=== PATIENT | female | born 1995 | race Caucasian/White ===

== ENCOUNTER 2016-10-03 22:06 | Emergency (ER) | payer OTHER ==
[2016-10-03 22:32] VITALS: BP 144/77
== END 2016-10-03 23:23 | disposition left against medical advice (07) ==
LOC: ED 22:06
DX: J02.9 Acute pharyngitis, unspecified (principal); Z53.21 Procedure and treatment not carried out due to patient leaving prior to being seen by health care provider

== ENCOUNTER 2016-10-04 14:21 | Emergency (ER) | payer OTHER ==
[2016-10-04 14:38] VITALS: BP 123/92
--- NOTE | 2016-10-04 14:49 | UC ---
Throat Pain/Nasal Rob HPI - HPI Summary HPI Summary: worsening sore throat for 1 week, no fevers, but is very painful to swallow - History of Current Complaint Chief Complaint: EDThroatPain Stated Complaint: SORE THROAT/[place] Time Seen by Provider: 10/04/16 14:40 Hx Obtained From: Patient Hx Last Menstrual Period: 09/30/16 ?: No Onset/Duration: Gradual Onset, Lasting Days - 7, Still Present, Worse Since - getting worse everyday Severity: Moderate Pain Intensity: 6 Pain Scale Used: 0-10 Numeric Cough: None Associated Signs & Symptoms: Positive: Negative - Allergies/Home Medications Allergies/Adverse Reactions: Allergies Allergy/AdvReac Type Severity Reaction Status Date / Time No Known Allergies Allergy Verified 10/04/16 14:38 PMH/Surg Hx/FS Hx/Imm Hx Previously Healthy: No Endocrine History Of: Denies: Diabetes, Thyroid Disease Cardiovascular History Of: Denies: Cardiac Disorders, Hypertension Respiratory History Of: Reports: Asthma Denies: COPD GI/ History Of: Denies: Ulcer - Surgical History Surgical History: None Surgery Procedure, Year, and Place: denies - Family History Known Family History: Positive: Hypertension - Social History Occupation: Unemployed Lives: With Family Alcohol Use: None Substance Use Type: None Smoking Status (MU): Heavy Every Day Tobacco Smoker Type: Cigarettes Amount Used/How Often: pack a date Length of Time of Smoking/Using Tobacco: 11 years Have You Smoked in the Last Year: Yes Household Exposure Type: Cigarettes Cessation Counseling: Counseled 3+Min - 10 Min - Immunization History Most Recent Influenza Vaccination: unknown Most Recent Tetanus Shot: 06/21/15 Most Recent Pneumonia Vaccination: none Review of Systems Constitutional: Chills Skin: Negative Eyes: Negative ENT: Sore Throat Respiratory: Negative Cardiovascular: Negative Gastrointestinal: Negative Genitourinary: Negative Motor: Negative Neurovascular: Negative Musculoskeletal: Negative Neurological: Negative Psychological: Negative All Other Systems Reviewed And Are Negative: Yes Physical Exam Triage Information Reviewed: Yes Appearance: Well-Appearing, No Pain Distress, Well-Nourished Vital Signs: Initial Vital Signs Temp 98.4 F 10/04/16 14:31 Pulse 95 10/04/16 14:31 Resp 16 10/04/16 14:31 BP 123/92 10/04/16 14:31 Pulse Ox 100 10/04/16 14:31 Vital Signs Reviewed: Yes Eye Exam: Normal Eyes: Positive: Conjunctiva Clear ENT Exam: Normal ENT: Positive: Normal ENT inspection, Hearing grossly normal, Pharynx normal, TMs normal, Tonsillar swelling, Tonsillar exudate. Negative: Nasal congestion, Nasal drainage, Trismus, Muffled/hoarse voice Dental Exam: Normal Neck exam: Normal Neck: Positive: Supple, Nontender, No Lymphadenopathy Respiratory Exam: Normal Respiratory: Positive: Chest non-tender, Lungs clear, Normal breath sounds, No respiratory distress, No accessory muscle use Cardiovascular Exam: Normal Cardiovascular: Positive: RRR, No Murmur, Pulses Normal, Brisk Capillary Refill Musculoskeletal Exam: Normal Musculoskeletal: Positive: Strength Intact, ROM Intact, No Edema Neurological Exam: Normal Neurological: Positive: Alert, Muscle Tone Normal Psychological Exam: Normal Psychological: Positive: Normal Response To Family, Age Appropriate Behavior Skin Exam: Normal Diagnostics - Laboratory Diagnostic Studies Completed/Ordered: RST (-) Throat Pain/Nasal Course/Dx - Course Assessment/Plan: increase fluids, prednisone, tylenol, ibuprofen follow with pcp recheck this week if symptoms worsen or fail to improve - Differential Dx/Diagnosis Differential Diagnosis/HQI/PQRI: Influenza, Laryngitis, Pharyngitis, Sinusitis, URI Provider Diagnoses: URI, Viral Syndrome Discharge - Discharge Plan Condition: Stable Disposition: HOME Prescriptions: predniSONE TAB* [Deltasone TAB*] 20 mg PO DAILY #8 tab Patient Education Materials: Pharyngitis (ED), Viral Syndrome (ED) Referrals: Miky Mendoza III C.O.D. BILLER [Primary Care Provider] - 5 Days
== END 2016-10-04 15:53 | disposition home or self-care (01) ==
LOC: UCEAST 14:21
DX: J06.9 Acute upper respiratory infection, unspecified (principal); B34.9 Viral infection, unspecified; J45.909 Unspecified asthma, uncomplicated; F17.210 Nicotine dependence, cigarettes, uncomplicated
CPT/HCPCS: 87651; 99201; G0463

== ENCOUNTER 2017-12-06 14:17 | Emergency (ER) | payer SELFPAY ==
[2017-12-06 14:42] VITALS: BP 119/90
--- NOTE | 2017-12-06 14:49 | UC ---
Bite Injury/Animal HPI - HPI Summary HPI Summary: 22 y/o female presents to the urgent care c/o LF index finger swollen and red s/ p squirrel bite yesterday at 1400pm. Pt reports she was driving w/ her and he decided to stop his car and help a squirrel who was just inured in the side of the road. He brought squirrel inside the car. He was petting the squirrel who seemed harmless. Pt decided to do the same and squirrel was afraid and bite her left index finger. She irrigated her finger w/ plenty of water as soon as she got home. This morning she woke up and her finger is swollen, red and painful. Seh called the health department and was advised to come to the urgent care to get treatment. seh can't recalled when was the last Tetanus vaccine. Pain is 2/10 at touch. She can move her left finger w/o any difficulty. LMP: 11/27/17/ and declines test. Pt denies fever, BRIGGS, SOB , chest pain, abdominal pain. N/V/D. - History of Current Complaint Chief Complaint: UCBiteInjury Stated Complaint: SQUIRREL BITE Time Seen by Provider: 12/06/17 14:49 Hx Obtained From: Patient Hx Last Menstrual Period: 11/27/17 ?: No - Pt declines test Severity Currently: Moderate Severity Initially: Moderate Pain Intensity: 2 Pain Scale Used: 0-10 Numeric Onset/Duration: Sudden Onset - yesterday at 1500pm, Lasting Days - 1 day Type of Bite: Wild Animal - squirrel Has Animal Been Immunized?: No Character: Puncture - at left DIPJ Aggravating Factor(s): Other - movement of left DIPJ Alleviating Factor(s): Rest Associated Signs And Symptoms: Positive: Erythema, Swelling, Limited ROM. Negative: Fever, Drainage, Lymphadenopathy Hx of Bite: Unprovoked Animal Available for Observation: No Animal Control Notified: Yes Body - Head: 1 - 0.3cm puncture wound at left DIPJ 2 - 0.4cm puncture wound at the left 2nd DIPJ - Risk Factors Infection/Sepsis Risk Factors: Negative - Allergies/Home Medications Allergies/Adverse Reactions: Allergies Allergy/AdvReac Type Severity Reaction Status Date / Time No Known Allergies Allergy Verified 12/06/17 14:42 PMH/Surg Hx/FS Hx/Imm Hx Previously Healthy: Yes Respiratory History: Asthma - Surgical History Surgical History: None Surgery Procedure, Year, and Place: denies - Family History Known Family History: Positive: Hypertension, Diabetes - Social History Occupation: Employed Full-time Lives: With Family Alcohol Use: None Substance Use Type: None Smoking Status (MU): Heavy Every Day Tobacco Smoker Type: Cigarettes Amount Used/How Often: pack a date Length of Time of Smoking/Using Tobacco: 11 years Have You Smoked in the Last Year: Yes Household Exposure Type: Cigarettes - Immunization History Most Recent Influenza Vaccination: unknown Most Recent Tetanus Shot: 06/21/15 Most Recent Pneumonia Vaccination: none Hx Tetanus, Diphtheria Vaccination: No - unkown Review of Systems Constitutional: Negative Skin: Other - puncture wound at the 2nd left DIPJ s/p squirrel bite, swelling and redness around it Eyes: Negative ENT: Negative Respiratory: Negative Cardiovascular: Negative Gastrointestinal: Negative Genitourinary: Negative Motor: Negative Neurovascular: Negative Musculoskeletal: Negative Neurological: Negative Psychological: Negative Is Patient Immunocompromised?: No All Other Systems Reviewed And Are Negative: Yes Physical Exam - Summary Physical Exam Summary: Vital Signs Reviewed: Yes General: well developed, well nourished female sitting in the examining table w/ o any apparent distress. Eyes: Positive: Conjunctiva Clear - PERRLA, EOMI ENT: Positive: Normal ENT inspection, Hearing grossly normal, Pharynx normal, TMs normal Neck: Positive: Supple, Nontender, No Lymphadenopathy Respiratory: Positive: Chest nontender, Lungs clear, Normal breath sounds Cardiovascular: Positive: RRR, No Murmur, Pulses Normal Abdomen Description: Positive: Nontender, No Organomegaly, Soft. Negative: CVA Tenderness (R), CVA Tenderness (L) Bowel Sounds: Positive: Present Musculoskeletal: Positive: Strength Intact, ROM Intact, No Edema Neurological Exam: Normal Psychological Exam: Normal Skin: Positive: rashes - left DIPJ w/ a puncture wound in both dorsal and ventral side w/ small erythematous patch w/ indistinct borders,surrounding wound warm to touch, mild swelling and tender to palpation. No streaking observed, no lymphadenopathy palpated. no drainage. FROM of left 2nd phalanx. Sensation WNl, capillary refill brisk, pulses WNL Triage Information Reviewed: Yes Vital Signs: Initial Vital Signs Temp 98.8 F 12/06/17 14:38 Pulse 82 12/06/17 14:38 Resp 18 12/06/17 14:38 BP 119/90 12/06/17 14:38 Pulse Ox 99 12/06/17 14:38 Bite Injury Course/Dx - Course Course Of Treatment: 22 y/o female presents to the urgent care c/o LF index finger swollen and red s/p squirrel bite yesterday at 1400pm. Pt reports she was driving w/ her and he decided to stop his car and help a squirrel who was just inured in the side of the road. He brought squirrel inside the car. He was petting the squirrel who seemed harmless. Pt decided to do the same and squirrel was afraid and bite her left index finger. She irrigated her finger w/ plenty of water as soon as she got home. This morning she woke up and her finger is swollen, red and painful. Se called the health department and was advised to come to the urgent care to get treatment. seh can't recalled when was the last Tetanus vaccine. Pain is 2/10 at touch. She can move her left finger w/o any difficulty. LMP: 11/27/17/ and declines test. Pt denies fever, BRIGGS, SOB, chest pain, abdominal pain. N/V/D.Hx obtained. Pt w/ left DIPJ w/ a puncture wound in both dorsal and ventral side w/ small erythematous patch w/ indistinct borders,surrounding wound warm to touch, mild swelling and tender to palpation. No streaking observed, no lymphadenopathy palpated. no drainage on examination. As per U[employer] Pt's risk of rabies exposure is very low since bite was from a squirrels. I spoke to Mr Radha Loco at the health Department in regards to rabied prophilaxis and he states he already spoke to Pt in the morning and advised Pt to come to urgent care for management of infected wound and that risk of rabies was low. He spoke to hsi supervisor [employer] and they decline authorization for prophilactic treatment. I spoke to Dr Osei in regards to Pt's symptoms and she agreed w/ plan of care. Pt given Tetanus vaccines by nurse. Left index finger X-ray ordered to r/o fracture or FB. Impression: negative for fracture or FB. wound irrigated well, cleaned w/ iodine swabs, bacitracin oint applied and wound covered w/ Bacitracin oint. Pt Rx Augmentin PO. First dose given at the clinic. Also Rx Bacitracin oint and strongly advised if not improvement of symptoms to return to the clinic or f/u w/ her PCP for further maanagement.Pt's BP is elevated today advised to decrease salt in diet, monitor BP and f/u with PCP for further management. Pt understood and aggreed w/ plan of care. - Differential Dx/Diagnosis Differential Diagnosis/HQI/PQRI: Cellulitis, Fracture, Laceration, Puncture, Rabies Exposure, Superficial Infection, Deep Space Infection, Tenosynovitis Provider Diagnoses: 1-left 2nd phalanx puncture wound s/p squirrel bite. 2- Left 2nd phalanx cellulitis s/p squirrel bite. 3- Elevated BP w/o Hx of HTN Discharge - Sign-Out/Discharge Documenting (check all that apply): Discharge/Admit/Transfer - D/C home - Discharge Plan Condition: Stable Disposition: HOME Prescriptions: Amoxicillin/Clavulanate TAB* [Augmentin TAB 875*] 875 mg PO BID #19 tab Bacitracin OINTMENT* 1 applic TOPICAL BID #1 tube Patient Education Materials: Animal Bite (ED), Cellulitis (ED), Low-Sodium Diet (ED) Referrals: Martina Devi CLINICAL RESEARCH NURSE COORDINATOR [Primary Care Provider] - 2 Days Additional Instructions: 1-Please take full course of Antibiotic. First dose given at the clinic today 2-Keep wound dry and clean. Apply Bacitracin oint as directed over the wound 3- If redness and swelling doubles after 48 hrs of taking antibiotic and fever develops please go to the ER immediately. 4-Avoid flexing your left index finger to decrease swelling 5-Please F/u with your PCP or return to the urgent care in 2-3 days if not improvement of symptoms for further evaluation and treatment. 6-Your BP is elevated today. please decrease salt in your diet, monitor BP and if it continues to be elevated please f/u with your PCP for further management - Billing Disposition and Condition Condition: STABLE Disposition: Home
[2017-12-06] MEDS ORDERED: Tetan/Diph/Pertus SYR(Tdap)* 0.5 ML SYR(BOOSTRIX) use SYR IM ONE (15:17)
--- NOTE | 2017-12-06 15:45 | RAD ---
INDICATION: Left second digit injury COMPARISON: None TECHNIQUE: AP, lateral, and oblique views were obtained. FINDINGS: There is no fracture or foreign body. There is soft tissue swelling about the proximal digit. IMPRESSION: NO FRACTURE OR FOREIGN BODY.
[2017-12-06] MEDS ORDERED: Amoxicillin/Clavulanate TAB* 875 MG PO ONE (15:52)
== END 2017-12-06 16:25 | disposition home or self-care (01) ==
LOC: UCEAST 14:17
DX: S61.231A Puncture wound without foreign body of left index finger without damage to nail, initial encounter (principal); L03.012 Cellulitis of left finger; W53.21XA Bitten by squirrel, initial encounter; Y93.9 Activity, unspecified; Y92.9 Unspecified place or not applicable; Z23 Encounter for immunization; R03.0 Elevated blood-pressure reading, without diagnosis of hypertension; J45.909 Unspecified asthma, uncomplicated; Z82.49 Family history of ischemic heart disease and other diseases of the circulatory system; Z83.3 Family history of diabetes mellitus; F17.210 Nicotine dependence, cigarettes, uncomplicated
CPT/HCPCS: 73140; 90471; 90715; 99212; A9270-GY; G0463

== ENCOUNTER 2018-11-09 20:04 | Emergency (ER) | payer MEDICAID ==
[2018-11-09 20:19] VITALS: BP 140/87
--- NOTE | 2018-11-09 20:37 | UC ---
Shoulder Pain HPI - HPI Summary HPI Summary: 23 y/o female presents to the urgent care c/o right shoulder pain from picking up daughter two weeks ago. Also rash on second finger of right hand-just noticed it today - History of Current Complaint Chief Complaint: UCUpperExtremity Stated Complaint: SHOULDER STRAIN Time Seen by Provider: 11/09/18 20:36 Hx Obtained From: Patient Hx Last Menstrual Period: 09/19/2018 ?: Yes Onset/Duration: Sudden Onset, Lasting Weeks - 2 weeks Pain Intensity: 2 - Allergies/Home Medications Allergies/Adverse Reactions: Allergies Allergy/AdvReac Type Severity Reaction Status Date / Time amoxicillin Allergy Unknown Verified 11/09/18 20:20 Reaction Details Penicillins Allergy Unknown Verified 11/09/18 20:20 Reaction Details Home Medications: Home Medications Pnv No.103/Folic/Om3s/Fish Oil [ Gummies] 1 tab PO DAILY 11/09/18 [ History Confirmed 11/09/18] PMH/Surg Hx/FS Hx/Imm Hx - Surgical History Surgical History: None Surgery Procedure, Year, and Place: denies - Family History Known Family History: Positive: Hypertension, Diabetes - Social History Alcohol Use: None Substance Use Type: None Smoking Status (MU): Heavy Every Day Tobacco Smoker Type: Cigarettes Amount Used/How Often: pack a date Length of Time of Smoking/Using Tobacco: 11 years Have You Smoked in the Last Year: Yes Household Exposure Type: Cigarettes - Immunization History Most Recent Influenza Vaccination: unknown Most Recent Tetanus Shot: 06/21/15 Most Recent Pneumonia Vaccination: none Hx Tetanus, Diphtheria Vaccination: No - unkown Physical Exam - Summary Physical Exam Summary: Vital Signs Reviewed: Yes GENERAL: Well-Appearing, No Pain Distress, Well-Nourished female w/o any apparent pain distress Eyes: Positive: Conjunctiva Clear - PERRL,EOMI ENT: Positive: Normal ENT inspection, Hearing grossly normal, Pharyngeal erythema - mild, Nasal drainage - clear, Uvula midline Neck: Positive: Supple, Nontender, No Lymphadenopathy Respiratory: Positive: Chest non-tender, Lungs clear, Normal breath sounds, No respiratory distress Cardiovascular: Positive: RRR, No Murmur, Pulses Normal, Brisk Capillary Refill Abdomen Description: Positive: Nontender, No Organomegaly, Soft. Negative: CVA Tenderness (R), CVA Tenderness (L) Bowel Sounds: Positive: Present Musculoskeletal: Rt shoulder: The R shoulder is with/without obvious asymmetry or deformity when compared to the L shoulder. posterior shoulder w/ ecchymosis and bruising, no crepitus. No bony deformity or prominence of humeral head. No erythema, warmth. No Point Tenderness to palpation over the clavicle, or scapula. positive tenderness over Acromioclavicular joint and humeral head with mild swelling, NT to palpation of the bicipital groove . NT to palpation of the muscles of the sternocleidomastoid, pectoralis, biceps/triceps , deltoid, trapezius, . Limited ROM due to pain especially in adduction and abduction.on both passive and active, internal/external rotation, flexion/ extension. "empty can and drop arm test unable to perform due to pain. No axillary tenderness or lymphadenopathy. Normal sensation over the deltoid and fingers. Distal motor and neurovascular status is intact. Neurological Exam: Normal Psychological Exam: Normal Skin Exam: Normal Triage Information Reviewed: Yes Vital Signs: Initial Vital Signs Temp 98.4 F 11/09/18 20:12 Pulse 96 11/09/18 20:12 Resp 16 11/09/18 20:12 BP 140/87 11/09/18 20:12 Pulse Ox 100 11/09/18 20:12 Shoulder Course/Dx - Course Course Of Treatment: Pt is probably about 4-6 weeks, LMP:09/19/2018 Pt w/ possible RT shoulder Tendonitis. Pt's advised to take Tylenol PO. Shoulder immobilized with a shoulder sling for 3-4 days. Advised to f/u with Sports medicine Orthopedic referral in 2-3 days for further management, possible ultrasound. .D /c instructions explained. Pt understood and agreed w/ plan of care. - Differential Dx/Diagnosis Differential Diagnosis/HQI/PQRI: AC Separation, Contusion, Fracture (Closed), Rotator Cuff Injury, Sprain, Strain, Tendonitis Provider Diagnosis: Tendonitis of shoulder, right, Rash and nonspecific skin eruption, Elevated BP without diagnosis of hypertension, Foreign body in right ear Discharge - Sign-Out/Discharge Documenting (check all that apply): Patient Departure - D/c home All imaging exams completed and their final reports reviewed: No Studies - Discharge Plan Condition: Stable Disposition: HOME Prescriptions: Calamine/Pramoxine LOTION* [Caladryl LOTION*] 1 applic .SEE ORDER BID #1 btl Neomyc/Polym/HC 1% OTIC SUSP* [Cortisporin Otic Susp 1%*] 4 drop RIGHT EAR TID # 1 btl Patient Education Materials: Tendinitis (ED), Otitis Externa (ED) Referrals: [facility] [Provider Group] - 2 Days Martina Devi DIRECTOR FUNDS DEVELOPMENT [Primary Care Provider] - 2 Days () Hiral Fabian [Medical Doctor] - 1 Week Additional Instructions: 1-Please take Tylenol PO q6-8hrs prn as directed to alleviate pain and swelling. 2-Please apply ice, keep your shoulder immobilized with the shoulder sling for 3-4 days and then resume movement slowly 3- Please f/u with Sport Medicine Orthopedic in 2-3 days further evaluation and treatment in your symptoms. 4- Please apply Calamide lotion as directed in the discrete rash in your finger. If it is not improving please f/u w/ Switch House Operator Dr Fabian in 1 week for further evaluation and treatment. 4- Your BP is elevated today. please decrease salt in your diet, monitor BP and if it continues to be elevated please f/u with your PCP for further management. - Billing Disposition and Condition Condition: STABLE Disposition: Home
== END 2018-11-09 21:22 | disposition home or self-care (01) ==
LOC: UCEAST 20:04
DX: M75.91 Shoulder lesion, unspecified, right shoulder (principal); T16.1XXA Foreign body in right ear, initial encounter; R21 Rash and other nonspecific skin eruption; R03.0 Elevated blood-pressure reading, without diagnosis of hypertension; Z88.0 Allergy status to penicillin; F17.210 Nicotine dependence, cigarettes, uncomplicated; X58.XXXA Exposure to other specified factors, initial encounter; Y92.9 Unspecified place or not applicable
CPT/HCPCS: 99213; G0463

== ENCOUNTER 2019-05-14 08:08 | Emergency (ER) | payer OTHER ==
[2019-05-14 08:51] VITALS: BP 114/68
--- NOTE | 2019-05-14 09:42 | UC ---
Pediatric ENT HPI - History Of Current Complaint Chief Complaint: UCGeneralIllness Stated Complaint: THROAT PAIN Pain Intensity: 0 - Allergies/Home Medications Allergies/Adverse Reactions: Allergies Allergy/AdvReac Type Severity Reaction Status Date / Time amoxicillin Allergy Unknown Verified 05/14/19 08:46 Reaction Details Penicillins Allergy Unknown Verified 05/14/19 08:46 Reaction Details Home Medications: Home Medications diphenhydrAMINE HCl [Benadryl Allergy 25 MG CAP] 25 mg PO ONCE 05/14/19 [ History Confirmed 05/14/19] Past Medical History Respiratory History: Yes: Hx Asthma Chronic Illness History: No: Diabetes Physical Exam Vital Signs: Initial Vital Signs Temp 98.3 F 05/14/19 08:46 Pulse 101 05/14/19 08:46 Resp 16 05/14/19 08:46 BP 114/68 05/14/19 08:46 Pulse Ox 99 05/14/19 08:46 Discharge ED - Discharge Plan Referrals: Martina Devi CARE PROVIDER [Primary Care Provider] -
--- NOTE | 2019-05-14 09:56 | UC ---
Throat Pain/Nasal Rob HPI - HPI Summary HPI Summary: Patient is a 23-year-old 33 week female presenting with sore throat and cough 3 days. Patient states cough became productive this morning and she felt short of breath when she woke up. Denies feeling short of breath right now. He notes bilateral ear pressure. Notes postnasal drip. Notes episode of diarrhea 3 days ago but none since. Denies fever and chills. Denies nausea and vomiting. Denies decreased appetite and fluid intake. Denies abdominal pain and urinary symptoms. Notes history of asthma. Patient is also a current every day smoker. States she has taken Benadryl for symptoms without relief. - History of Current Complaint Chief Complaint: UCGeneralIllness Stated Complaint: THROAT PAIN Hx Obtained From: Patient Hx Last Menstrual Period: 09/19/2018 Onset/Duration: Gradual Onset, Lasting Days Pain Intensity: 0 Pain Scale Used: 0-10 Numeric - Allergies/Home Medications Allergies/Adverse Reactions: Allergies Allergy/AdvReac Type Severity Reaction Status Date / Time amoxicillin Allergy Unknown Verified 05/14/19 08:46 Reaction Details Penicillins Allergy Unknown Verified 05/14/19 08:46 Reaction Details Home Medications: Home Medications diphenhydrAMINE HCl [Benadryl Allergy 25 MG CAP] 25 mg PO ONCE 05/14/19 [ History Confirmed 05/14/19] PMH/Surg Hx/FS Hx/Imm Hx Respiratory History: Asthma - Surgical History Surgical History: None Surgery Procedure, Year, and Place: denies - Family History Known Family History: Positive: Hypertension, Diabetes - Social History Lives: With Family Alcohol Use: None Substance Use Type: None Smoking Status (MU): Heavy Every Day Tobacco Smoker Type: Cigarettes Amount Used/How Often: 1/2 PPD Length of Time of Smoking/Using Tobacco: 11 years Have You Smoked in the Last Year: Yes Household Exposure Type: Cigarettes - Immunization History Most Recent Influenza Vaccination: unknown Most Recent Tetanus Shot: 06/21/15 Most Recent Pneumonia Vaccination: none Hx Tetanus, Diphtheria Vaccination: No - unkown Review of Systems All Other Systems Reviewed And Are Negative: Yes Constitutional: Positive: Negative. Negative: Fever, Chills ENT: Positive: Sore Throat, Ear Ache - Bilateral ear pressure, Nasal Discharge - PND. Negative: Sinus Congestion, Sinus Pain/Tenderness Respiratory: Positive: Shortness Of Breath, Cough - Mildly productive Cardiovascular: Positive: Negative Gastrointestinal: Positive: Diarrhea - x1 3 days ago. Negative: Abdominal Pain , Vomiting, Nausea Genitourinary: Positive: Negative Musculoskeletal: Positive: Negative Neurological: Positive: Negative Physical Exam Triage Information Reviewed: Yes Appearance: Well-Appearing, No Pain Distress, Well-Nourished Vital Signs: Initial Vital Signs Temp 98.3 F 05/14/19 08:46 Pulse 101 05/14/19 08:46 Resp 16 05/14/19 08:46 BP 114/68 05/14/19 08:46 Pulse Ox 99 05/14/19 08:46 Vital Signs Reviewed: Yes Eyes: Positive: Conjunctiva Clear ENT: Positive: Hearing grossly normal, Pharyngeal erythema, Nasal drainage - PND noted, TMs normal, Uvula midline. Negative: Nasal congestion, Tonsillar swelling, Tonsillar exudate, Sinus tenderness Neck: Positive: Supple, Tenderness @ - Tonsillar nodes, Enlarged Nodes @ - Tonsillar nodes Respiratory Exam: Normal Respiratory: Positive: Lungs clear, Normal breath sounds, No respiratory distress. Negative: Crackles, Rhonchi, Stridor, Wheezing Cardiovascular Exam: Normal Cardiovascular: Positive: RRR. Negative: Tachycardia Neurological: Positive: Alert Psychological: Positive: Age Appropriate Behavior Skin Exam: Normal Throat Pain/Nasal Course/Dx - Course Course Of Treatment: Negative rapid strep test. Lung sounds clear. VS normal. Discussed viral illness and symptomatic treatment including smoking cessation. I provided patient with albuterol inhaler for shortness of breath. Instructed to follow- up with PCP if symptoms persist. Instructed to go to ED with new or worsening symptoms. Patient voiced understanding and agreed with treatment plan. - Differential Dx/Diagnosis Differential Diagnosis/HQI/PQRI: Pharyngitis, Tonsillitis Provider Diagnosis: Upper respiratory infection, Bronchitis Discharge ED - Sign-Out/Discharge Documenting (check all that apply): Patient Departure All imaging exams completed and their final reports reviewed: No Studies - Discharge Plan Condition: Stable Disposition: HOME Prescriptions: Albuterol HFA INHALER* [Ventolin HFA Inhaler*] 1 - 2 puff INH Q6H PRN #1 mdi PRN Reason: Sob/Wheezing Patient Education Materials: Upper Respiratory Infection (ED), Acute Bronchitis (ED) Referrals: Martina Devi [facility] OPERATOR [Primary Care Provider] - If Needed Additional Instructions: You rapid strep test was negative today. Your symptoms are likely caused by a virus. Be sure to get plenty of rest and fluids. Throat lozenges, tea with honey, and a nasal saline spray may help relieve symptoms. You may take tylenol as directed for pain relief. Use the inhaler as needed for shortness of breath. Follow up with your PCP if symptoms do not resolve within 7 days. - Billing Disposition and Condition Condition: STABLE Disposition: Home
== END 2019-05-14 10:12 | disposition home or self-care (01) ==
LOC: UCEAST 08:08
DX: O99.513 Diseases of the respiratory system complicating pregnancy, third trimester (principal); F17.210 Nicotine dependence, cigarettes, uncomplicated; J45.909 Unspecified asthma, uncomplicated; J06.9 Acute upper respiratory infection, unspecified; H92.03 Otalgia, bilateral; R19.7 Diarrhea, unspecified; Z3A.33 33 weeks gestation of pregnancy; Z88.0 Allergy status to penicillin
CPT/HCPCS: 87651; 99212; G0463

== ENCOUNTER 2019-06-29 21:05 | Inpatient (IN) | payer OTHER ==
[2019-06-29] MEDS ORDERED: Lactated Ringers 1000 ML Bag* 1,000 ML IV ONE (21:34)
[2019-06-29] MEDS ORDERED: Buffered Lidocaine 1% SYRIN* 1 ML/SYRINGE INTRADERM ONE (21:34)
--- NOTE | 2019-06-29 21:45 | HP ---
General Information - Reason for Visit contractions on and off all day with + bloody show. - General Information Maternal Age: 23 Grav: 2 Para: 0 SAB: 1 IEA: 0 Estimated Due Date: 07/03/19 Determined By: LMP Gestational Age in Weeks/Days: 39w3d Maternal Blood Type and Rh: AB Positive - Results this Serology/RPR Result: Non-Reactive Rubella Result: Immune HBsAg Result: Negative HIV Result: Negative GBS Culture Result: Negative Past Medical History Delivery History: Hx Uncomplicated Vaginal Delivery Pertinent Past Medical History: See Records - hx of depression and anxiety Pertinent Past Surgical History: None Pertinent Family History: See Records - CVD, stroke - Antepartal Records Antepartal Records: Reviewed, Complicated by: - heavy smoker, gestational diabetes Review of Systems Constitutional: Uncomfortable CV Complaint: No Respiratory: Shortness of Breath: No Gastrointestinal: No Nausea/Vomiting, Normal Bowel Movement Genitourinary: No Dysuria, No Bleeding, No Leaking Fluid, Spotting Musculoskeletal: No Epigastric Pain, Contractions Neurological: No Headache, No Visual Changes Movement: Normal Exam Allergies/Adverse Reactions: Allergies amoxicillin Allergy (Verified 06/29/19 21:28) Unknown Reaction Details Penicillins Allergy (Verified 06/29/19 21:28) Unknown Reaction Details T:98.7, P:106, R:20, BP:134/81, O2:100% - Measurements Height: 5 ft 3 in Weight: 185 lb 13.683 oz Weight in lbs: 185.723001 Body Mass Index (BMI): 32.9 Pre- Weight: 118 lb Weight Gained This : 67.855 lbs and 0.003 ozs - Exam Breast: Breast Exam Deferred CVA: No CVA Tenderness Extremities: No Edema Heart: Normal Rhythm/Heart Sounds HEENT: No Significant Findings Lungs: Clear Bilaterally Rectal: Rectal Exam Deferred Reflexes: DTR 2+ Thyroid: No Thyromegaly - Abdominal Exam Abdomen Exam: Non-Tender, Fundal Height Consistent with Dates - Ultrasound/Biophysical Profile Ultrasound Status: Not Done Targeted Exam Findings Estimated Weight: 7lbs Cervical Exam: 6cm Effacement: 100% Station: -1 Presenting Part: Vertex Membrane Status: Bulging Bleeding/Discharge: Bloody Show EFM Findings - External Monitor Findings Baseline Heart Rate: 140 External Monitor Findings: Accelerations Present, No Pattern of Variable or Late Decelerations, Variability Moderate, Baseline Stable Contractions: Regular, Moderate, 45-90 Seconds Contraction Frequency: 2-3 min Assessment/Plan - Assessment 23 y.o. , 39w3d EGA, cat I NST, active labor - Obstetrical Risk Factors Obstetrical Risk Factors: Tobacco Use - Plan Plan: Admit - Anticipate Vaginal Delivery - Date/Time of Admission Date of Admission: 06/29/19 Time of Admission: 21:00
[2019-06-29] MEDS ORDERED: Lactated Ringers 1000 ML Bag* 1,000 ML IV SCH ×2 (22:00→23:00)
[2019-06-29] MEDS ORDERED: Dibucaine 1% 28.35 GM TUBE PR PRN (22:45)
[2019-06-29] MEDS ORDERED: Misoprostol TAB* 200 MCG PR ONE (22:45)
[2019-06-29] MEDS ORDERED: Witch Hazel PAD* JAR TOPICAL PRN (22:45)
[2019-06-29] MEDS ORDERED: Acetaminophen TAB* 325 MG PO PRN (22:45)
[2019-06-29] MEDS ORDERED: Glycerin ADULT SUPP PR PRN (22:45)
[2019-06-29] MEDS ORDERED: OXYTOCIN* 10 UNITS/ML 1 ML VIAL IM ONE (22:45)
--- NOTE | 2019-06-29 22:52 | PROCNOTE ---
[facility] OB: Delivery Note - Delivery A Date of : 06/29/19 Time of : 22:27 Sex: Male Score 1 Minute: 9 Score 5 Minutes: 9 Gestational Age in Weeks and Days at Delivery: 39 Weeks and 3 Days Delivery Method: Spontaneous Vaginal Labor: Spontaneous Amniotic Fluid: Clear Estimated Blood Loss: 450 Anesthesia/Analgesia: Nitrous-Labor Delivered By: Carmina Huizar - Nursery Level of Nursery: Regular/Bedside - Perineum Perineal Injury: Abrasion Only - Not Repaired Perineal Repair: None - Events Delivery Events of Note: Post- Bleeding - Meds Given Delivery Events of Note Comment: direct OP presentation nuchal cord x 2, reduced on perineum
[2019-06-30] MEDS: Ibuprofen TAB* 600 MG PO PRN ×3 (00:04→19:38)
[2019-06-30] MEDS ORDERED: Ammonia Inhalant* 1 EA AMP ONE (00:15)
[2019-06-30] MEDS: Docusate CAP* 100 MG PO SCH ×3 (08:23→19:38)
[2019-06-30] MEDS ORDERED: Simethicone TAB* 80 MG TAB.CHEW PO SCH (08:30)
[2019-06-30 09:25] LABS: ABS Basophils 0.1 10^3/ul (0-0.2); ABS Lymphocytes 1.4 10^3/ul (1.0-4.8); ABS Monocytes 0.6 10^3/ul (0-0.8); ABS Neutrophils 9.3 10^3/ul (1.5-7.7); Hematocrit 22 % (35-47); Hemoglobin 7.7 g/dL (12.0-16.0); Lymphocyte % 12.3 %; Mean Corpuscular HGB Conc 35 g/dL (31-36); Mean Corpuscular Hemoglobin 27 pg (27-31); Mean Corpuscular Volume 80 fL (80-97); Mean Platelet Volume 8.7 fL (7.4-10.4); Nucleated Red Blood Cells % 0.1; Platelet Count 182 10^3/uL (150-450); Red Blood Count 2.81 10^6 /uL (3.70-4.87); Red Cell Distribution Width 17 % (10-15); White Blood Count 11.4 10^3/uL (3.5-10.8)
[2019-06-30] MEDS: Ferrous Gluconate TAB* 324 MG TAB PO SCH ×2 (10:32→19:38)
[2019-06-30 13:08] LABS: Urine Benzodiazepine Screen None Detected (None Detect); Urine Opiates Screen None Detected (None Detect)
[2019-06-30] MEDS ORDERED: Nicotine Lozenge* mini 4 MG LOZNG.MINI MT PRN (13:15)
[2019-06-30 19:40] VITALS: BP 141/67
== END 2019-06-30 23:00 | disposition home or self-care (01) | DRG 560 ==
LOC: MCHOBOUT 21:05 → MCHOB 21:28
PROVIDERS: ADMIT Midwife; ATTEND Midwife
PROC: 10E0XZZ Delivery of Products of Conception, External Approach (ICD-10-PCS; principal; 2019-06-29)
PROC: 10907ZC Drainage of Amniotic Fluid, Therapeutic from Products of Conception, Via Natural or Artificial Opening (ICD-10-PCS; 2019-06-29)
PROC: 4A1HXCZ Monitoring of Products of Conception, Cardiac Rate, External Approach (ICD-10-PCS; 2019-06-29)
DX: O24.429 Gestational diabetes mellitus in childbirth, unspecified control (principal); O72.1 Other immediate postpartum hemorrhage; Z37.0 Single live birth; O99.334 Smoking (tobacco) complicating childbirth; F17.210 Nicotine dependence, cigarettes, uncomplicated; O90.81 Anemia of the puerperium; O71.82 Other specified trauma to perineum and vulva; O69.81X0 Labor and delivery complicated by cord around neck, without compression, not applicable or unspecified; Z88.0 Allergy status to penicillin; Z3A.39 39 weeks gestation of pregnancy; Z28.21 Immunization not carried out because of patient refusal
CPT/HCPCS: 36415; 80307; 85025; A9270-GY; J2590